=== PATIENT | female | born 1995 | race Caucasian/White ===

== ENCOUNTER 2018-06-19 13:08 | Emergency (ER) | payer OTHER ==
[~2018-06-19] VITALS: Ht 154.9 cm; Wt 59.9 kg
[2018-06-19 13:10] VITALS: Ht 154.9 cm; Wt 59.9 kg
[2018-06-19 14:38] VITALS: BP 113/70
== END 2018-06-19 14:39 | disposition home or self-care (01) ==
LOC: ED 13:08
DX: M54.5 Low back pain (principal)